=== PATIENT | female | born 1995 | race Caucasian/White ===

== ENCOUNTER → 2020-04-28 | Outpatient (REF) | payer OTHER | LOC: M SFHCLUC 15:34 | PROVIDERS: ATTEND Physician Assistant | DX: J02.9 Acute pharyngitis, unspecified (principal) ==

== ENCOUNTER 2021-02-10 15:12 | Outpatient (CLI) | payer OTHER ==
[~2021-02-10] VITALS: Ht 157.5 cm; Wt 65.0 kg
[2021-02-10 15:32] VITALS: BP 109/66
--- NOTE | 2021-02-10 17:05 | IPNPDOC ---
Obstetrical Progress Note Date of Service February 10, 2021 Subjective Ms. Gonzalez is a 25yo at 25+6 presenting with hematuria, she notably has a low lying placenta. She notes slight dysuria with her last void but otherwise has had no urinary symptoms. She denied fevers or chills. She denied abdominal or back pain. She denied n/v/d, cp, sob, curtis, visual changes, abd pain, vaginal bleeding, discharge, LOF, decreased FM, contractions. Objective Vital Signs Date Time Temp Pulse Resp B/P (MAP) Pulse Ox O2 Delivery O2 Flow Rate FiO2 02/10/21 15:32 98.8 104 109/66 (80) Assessment Heart Rate (FHR): 140 Variability: Moderate Accelerations: Positive Decelerations: None Heart Rate Tracing: Category I (AGA) Tocometer Contractions: No Sterile Vaginal Examination Dilation: None Postion/Presentation: Cephalic presentation Assessment and Plan Additional Comments Ms. Gonzalez is a 25yo at 25+6 presenting with hematuria, she notably has a low lying placenta and a history of kidney stones. She notes slight dysuria with her last void but otherwise has had no urinary symptoms. She denied fevers or chills. She denied abdominal or back pain. VS normal. NST appropriate for gestational age. No contractions. On exam she has slight right CVA tenderness and no abdominal tenderness. Bedside TVUS with placenta still near the cervix but no concerning color flow near the os. On speculum exam there was no vaginal bleeding (there were multiple cervical polyps that were easily friably but no bleeding on the exam prior to palpation of the polyps with a applicator). UA with +blood and no casts, SG low. UCx sent. At this time patient is not meeting criteria for pyelonephritis and a renal stone is possible but given no pain either small and non-obstructing or unlikely. At this time will start treatment for UTI. If symptoms persist or patient develops pain will perform renal US. - starting macrobid for UTI - strict return precautions for pain, vaginal bleeding, fever, PO intolerance, or other concerning symptoms - educated on routine OB return precautions - follow up in clinic this week to re-evaluate and adjust meds for UCx as indicated LUCIEN Fuentes DO February 10, 2021 17:05
[2021-02-10 17:33] LABS: APPEARANCE, URINE CLEAR (CLEAR); BACTERIA, URINE AUTO 1+ (NEGATIVE); BILIRUBIN, URINE AUTO NEGATIVE (NEGATIVE); BLOOD, URINE BLOOD 3+ (NEGATIVE); COLOR, URINE STRAW (YELLOW); GLUCOSE, URINE (UA) AUTO NEGATIVE (NEGATIVE); KETONE, URINE AUTO NEGATIVE (NEGATIVE); LEUKOCYTE ESTERASE, URINE AUTO NEGATIVE (NEGATIVE); NITRITE, URINE AUTO NEGATIVE (NEGATIVE); PROTEIN, URINE AUTO NEGATIVE (NEGATIVE); RBC, URINE AUTO 6 /HPF (0-3); SPECIFIC GRAVITY URINE AUTO 1.001 (1.002-1.035); SQUAMOUS EPITHELIAL CELL UR AU 0 /HPF (0-6); UROBILINOGEN, URINE AUTO 0.2 mg/dL (0.0-2.0); WBC, URINE AUTO 1 /HPF (0-3)
== END 2021-02-10 17:40 | disposition home or self-care (01) ==
LOC: M LDO 15:12
PROVIDERS: ATTEND Registered Nurse
DX: O23.43 Unspecified infection of urinary tract in pregnancy, third trimester (principal); Z3A.25 25 weeks gestation of pregnancy; O44.43 Low lying placenta NOS or without hemorrhage, third trimester; Z87.442 Personal history of urinary calculi
CPT/HCPCS: 81001; 87086; G0378; G0463

== ENCOUNTER 2021-05-19 00:21 | Outpatient (CLI) | payer OTHER ==
[~2021-05-19] VITALS: Ht 157.5 cm; Wt 70.2 kg
[2021-05-19 00:46] VITALS: BP 116/71
[2021-05-19 01:08] VITALS: BP 112/73
[2021-05-19 01:19] VITALS: BP 122/79
[2021-05-19] MEDS ORDERED: PREN29CH2 PO (01:55)
[2021-05-19] MEDS ORDERED: HOME MED LIST COMPLETE! XX SCH (01:55)
[2021-05-19 02:30] VITALS: BP 119/77
--- NOTE | 2021-05-19 06:55 | IPNPDOC ---
Obstetrical Progress Note Date of Service May 19, 2021 Objective Vital Signs Date Time Temp Pulse Resp B/P (MAP) Pulse Ox O2 Delivery O2 Flow Rate FiO2 05/19/21 02:30 98.2 86 16 119/77 (91) Assessment Variability: Moderate Accelerations: Positive Decelerations: None Heart Rate Tracing: Category I Tocometer Contractions: Yes Frequency: regular Sterile Vaginal Examination Dilation: 3 cm Effacement (%): 50% Station: -3 Cervical Consistency: Soft Cervical Position: Posterior Postion/Presentation: Cephalic presentation Assessment and Plan Status: Reassuring Additional Comments Ms. Gonzalez is a 25yo at 39+6 who presents for a labor check. She reports contractions x2 hours. She denied pressure. She denied VB, LOF, decreased FM. She otherwise denied a 12 point ROS. On exam she was 3/50/-3 and was unchanged on 2h repeat exam. TAUS was cephalic with MVP 4cm, +FM. CAT I NST reactive. Eminent active labor is unlikely at this time. Educated on routine OB return precautions. Otherwise to followup at next [facility]. LUCIEN RIVERA DO May 19, 2021 06:55
[2021-05-19] MEDS ORDERED: ACET325C5 PO (08:53)
== END 2021-05-19 03:26 | disposition home or self-care (01) ==
LOC: M LDO 00:21
PROVIDERS: ATTEND Obstetrics & Gynecology
DX: O47.1 False labor at or after 37 completed weeks of gestation (principal); Z3A.39 39 weeks gestation of pregnancy
CPT/HCPCS: 59025; 76815; G0378; G0463

== ENCOUNTER 2021-05-19 08:19 | Inpatient (IN) | payer OTHER ==
[2021-05-19] VITALS (43 sets, daily range): BP systolic 90–162; BP diastolic 54–100
[~2021-05-19] VITALS: Ht 157.5 cm; Wt 69.6 kg
[~2021-05-19 08:19] MED LIST: PREN29CH2 PO
[2021-05-19] MEDS ORDERED: LACTATED RINGER'S 1000 ML IV STA (08:47)
[2021-05-19] MEDS ORDERED: OXYTOCIN DRIP 30 UNITS in IV 1 EA IV PRN (08:50)
[2021-05-19] MEDS ORDERED: LIDOCAINE 1% MDV 20ML VIAL INFIL PRN (08:50)
[2021-05-19] MEDS ORDERED: CARBOPROST TROMETHAMINE 250 MCG/ML AMP IM PRN (08:50)
[2021-05-19] MEDS ORDERED: TRANEXAMIC ACID INJection 1,000 MG in NS 100 ML IV PRN (08:50)
[2021-05-19] MEDS ORDERED: METHYLERGONOVINE MALEATE 0.2 MG/ML VIAL (J2210) IM PRN ×2 (08:50→21:05)
[2021-05-19] MEDS ORDERED: ACET325C5 PO (08:53)
[2021-05-19] MEDS ORDERED: FAMOTIDINE INJ 20MG/2ML VIAL (S0028 PER 1) IVP STA (08:55)
[2021-05-19] MEDS ORDERED: ONDANSETRON 4MG/2ML VIAL IV STA (08:56)
[2021-05-19 09:52] LABS: HEMATOCRIT 37.2 % (36.0-47.0); MEAN CORPUSCULAR HEMOGLOBIN 33.2 pg (27.0-33.0); MEAN CORPUSCULAR HGB CONC 34.9 g/dl (32.0-36.5); MEAN CORPUSCULAR VOLUME 95.1 fl (80.0-96.0); PLATELET COUNT, AUTOMATED 191 10^3/uL (150-450); RED BLOOD COUNT 3.91 10^6/uL (4.00-5.40); WHITE BLOOD COUNT 12.8 10^3/uL (4.0-10.0)
--- NOTE | 2021-05-19 09:55 | HPEPDOC ---
Obstetrical History & Physical General Date of Admission May 19, 2021 at 08:48 History of Present Illness 25 yo at 40w6d with PERRI of MAY 20 presents to L&D with worsening contrac tions since 0500 this morning. She reports that she has had increase nausea/vomiting/heartburn since this morning. She reports that has had 2 episodes of vomiting this morning. She denies vaginal bleeding, leaking of fluid, and reports positive movement. Chief Complaint: Contractions, term Information Provided By: Patient Age: 25 : 1 Term: 0 Pre-term: 0 Abortions: 0 Livin Care Care: Good Care Dating Final EDC by: LMP, 1st trimester (US) Estimated Date of Confinement: May 20, 2021 EGA at Admission: 40.6 Antepartum Course Height (inches): 62 Pre- weight (lbs.): 147 Admission Weight (lbs.): 153 Change in Weight (lbs.): 6 Past Medical History Past Obstetrical History : Past Obstetrical History: [employer] History: No pertinent history Past Medical History Medical History Hx of migraines without aura, anxiety, depression, C3-C7 and L5-S1 bulging spinal discs, Hx of concussion, Hx of kidney stones Surgical History: [place] teeth Family History Significant Family History: Diabetes Social History Marital Status: Family situation: Spouse/partner home Psychosocial History: Anxiety, Depression * Smoker: non-smoker Alcohol: Denies Drugs: denies Abuse Violence Screening Have you been hit/kicked/slapp: No Have you been sexually assault: No Imunizations Tdap status: current Influenza Status: current Allergies Coded Allergies: No Known Allergies (Unverified , 05/19/21) Medications Scheduled No115/Iron/Folic Acid ( 19 Chewable Tablet) 1 Each Tab.chew, 1 TAB PO DAILY Miscellaneous Medications Acetaminophen (Tylenol) 325 Mg Capsule, 1,000 MG PO Physical Examination Physical Examination GENERAL: Alert and oriented times three. BREAST: . ABDOMEN: Gravid and non-tender to touch. FETUS: Is vertex (VTX) by sterile vaginal examination (SVE), fetus is vertex (VTX) by Ancelmo. HEART RATE: Regular rate and rhythm. LUNGS: Clear to auscultation (CTA). EXTREMITIES: No edema. No clonus. Deep tendon reflexes (DTRs) + 2. Laboratory Data 24H LABS Laboratory Tests 2 05/19/21 08:52: Serology Scanned Report Hepatitis B Testing Pertinent Laboratoy Data Blood Type: O+ RBC Antibody Screen: Negative HIV: Negative Hepatitis B: Negative Rapid Plasma Reagin: Nonreactive Rubella: Immune Varicella: Immune Chlamydia/Gonorrhea: Negative Group B Streptococcus: Negative Cystic Fibrosis: Negative Steroid Therapy Steroid Therapy: No Vaginal Examination Dilation: 6 cm Effacement: 80% Station: -2 Cervical Consistency: Soft Cervical Position: Anterior Presentation: Cephalic presentation Position: Vertex (occiput) Assessment Heart Rate (FHR): 135 Variability: Moderate Accelerations: Present Decelerations: None Tocometer Contractions: Yes Frequency: regular (every 6-7 minutes) Multi-drug resistant Organism: No history of MDRO Assessment/Plan Assessment IUP at 40w6d Active labor Anxiety Depression Plan Admit and orient. Pole Maker and consent. Diet: clear liquids. Group B Streptococcus (GBS) negative. Labs and intravenous (IV) per unit protocol. Counseled on Pitocin and induction of labor (IOL). Lactated Ringers (LR): Bolus 1000 mL, then at 125 mL/hr. Anticipate normal spontaneous delivery (). C-S as appropriate. Labor and Delivery Counseling Discussed risks of labor complications to include but not limited to shoulder dystocia, PPH, and indications for section. Risks of vaginal delivery include but are not limited to: Bleeding, infection, injury to the vagina, pelvic structures, injury to baby, damage to the uterus, reactions to anesthesia, uterine rupture, risk of hysterectomy for life threatening bleeding, or . Medications used to induce or augment labor may increase your risk for infection, uterine tachysystole, uterine rupture, heart rate abnormalities, need for emergency delivery or possible hysterectomy, and hemorrhage. Additional risks for use of forceps and vacuum include: increased risk of perineal and vaginal lacerations, risk of urinary or bowel incontinence, increased risk of injury to baby with bruising, scratches, hematomas on the head, or intracranial bleeding. All questions answered to the to patient and family members satisfaction. She verbalized understanding of all information and is without any further questions at this time. MICAELA HIGUERA CNM May 19, 2021 09:02
--- NOTE | 2021-05-19 13:52 | IPNPDOC ---
Obstetrical Progress Note Date of Service May 19, 2021 Subjective 25 yo at 39w6d with PERRI of MAY 20 admitted for labor. She is feeling comfortable with her epidural. She has supportive family at the bedside. Objective Vital Signs Date Time Temp Pulse Resp B/P (MAP) Pulse Ox O2 Delivery O2 Flow Rate FiO2 05/19/21 12:26 76 90/55 (67) 05/19/21 11:21 98.9 20 Assessment Heart Rate (FHR): 125 Variability: Moderate Accelerations: Positive Decelerations: None Tocometer Contractions: Yes (every 6-7 minutes) Sterile Vaginal Examination Dilation: 8 cm Effacement (%): 80% Station: -2 Cervical Consistency: Soft Cervical Position: Anterior Postion/Presentation: Cephalic presentation Assessment and Plan Age: 25 : 1 Term: 0 Pre-term: 0 Abortions: 0 Livin Weeks & Days 39w6d Status: Reassuring Group B Streptococcus: Negative Anticipate: Vaginal Delivery MICAELA HIGUERA CNM May 19, 2021 13:45
[2021-05-19] MEDS ORDERED: ONDANSETRON 4MG/2ML VIAL IV PRN ×2 (14:10→21:05)
[2021-05-19] MEDS ORDERED: EPIDURAL/PCA KEYS XX PRN (14:10)
[2021-05-19] MEDS ORDERED: ePHEDrine SULFATE 25 MG/5 ML(5MG/ML) SYRINGE IV PRN (14:10)
[2021-05-19] MEDS ORDERED: FENTANYL/ROPIVACAINE/NACL BAG 100 ML EPIDURAL SCH (14:10)
[2021-05-19] MEDS ORDERED: REFRIGERATOR IV KEYS XX PRN (14:10)
[2021-05-19] MEDS ORDERED: EPIDURAL COMMENT XX SCH (14:10)
[2021-05-19] MEDS ORDERED: LACTATED RINGER'S 1000 ML IV PRN (14:10)
[2021-05-19] MEDS ORDERED: NALOXONE INJ 0.4MG/1ML VIAL (J2310 PER 1MG) IV PRN (14:10)
[2021-05-19] MEDS ORDERED: diphenhydrAMINE 50MG/ML VIAL (J1200) IV PRN (14:10)
[2021-05-19] MEDS ORDERED: OXYTOCIN DRIP 30 UNITS in IV 1 EA IV SCH ×2 (15:00→21:05)
[2021-05-19] MEDS ORDERED: diphenhydrAMINE 50MG/ML VIAL (J1200) IV STA (15:18)
--- NOTE | 2021-05-19 15:30 | IPNPDOC ---
Obstetrical Progress Note Date of Service May 19, 2021 Subjective 25 yo at 39w6d with PERRI of MAY 20 admitted for labor. She is feeling well and is comfortable with her epidural. She reports that since having her epidural placed, she has had itching across her chest. Objective Vital Signs Date Time Temp Pulse Resp B/P (MAP) Pulse Ox O2 Delivery O2 Flow Rate FiO2 05/19/21 14:06 98.6 88 16 127/76 (93) Room Air Mild redness noted across the chest. No notable rash. Assessment Heart Rate (FHR): 125 Variability: Moderate Accelerations: Present Decelerations: None Tocometer Contractions: Yes Frequency: regular (every 6-8 minutes) Sterile Vaginal Examination Dilation: 8 cm Effacement (%): 80% Station: -2 Cervical Consistency: Soft Cervical Position: Anterior Postion/Presentation: Cephalic presentation Assessment and Plan Age: 25 : 1 Term: 0 Pre-term: 0 Abortions: 0 Livin Weeks & Days 39w6d Status: Reassuring Group B Streptococcus: Negative Anticipate: Vaginal Delivery Additional Comments Discussed recommendations to start pitocin. Recommended for IV benadryl for itching. MICAELA HIGUERA CNM May 19, 2021 15:14
[2021-05-19] MEDS: LR 1,000 ML IV SCH ×2 (16:50→18:02)
--- NOTE | 2021-05-19 18:35 | IPNPDOC ---
Obstetrical Progress Note Date of Service May 19, 2021 Subjective 25 yo at 39w6d with PERRI of MAY 20 admitted for labor. She is feeling well and is comfortable with her epidural. Objective Vital Signs Date Time Temp Pulse Resp B/P (MAP) Pulse Ox O2 Delivery O2 Flow Rate FiO2 05/19/21 18:04 83 121/72 (88) 05/19/21 15:56 99.3 16 Room Air Assessment Heart Rate (FHR): 135 Variability: Moderate Accelerations: Present Heart Rate Tracing: Category I Tocometer Contractions: Yes Frequency: regular Sterile Vaginal Examination Dilation: 9 cm Effacement (%): 100% Station: +1, +2 Assessment and Plan Anticipate: Vaginal Delivery Additional Comments Small anterior lip on R side, not reducible. Pt comfortable with epidural and faisal regular. Will position patient on R side and reassess in 1hr. DAPHNE WALTER M.D. May 19, 2021 18:35
[2021-05-19] MEDS ORDERED: ACETAMINOPHEN TAB 650MG DOSE (2X325MG) PO PRN (21:05)
[2021-05-19] MEDS ORDERED: MEASLES,MUMPS,RUBELLA VACCINE INJ (MMR-II) (90707) SC SCH (21:05)
[2021-05-19] MEDS ORDERED: RHOGAM 300 MCG (1500 IU) INJ (J2790) IM SCH (21:05)
[2021-05-19] MEDS ORDERED: IBUPROFEN 600MG TAB PO PRN (21:05)
[2021-05-19] MEDS ORDERED: IBUPROFEN 800 MG TAB PO PRN (21:05)
[2021-05-19] MEDS ORDERED: DIBUCAINE 1% OINTMENT 30GM TOP PRN (21:05)
[2021-05-19] MEDS ORDERED: DOCUSATE SODIUM 100MG CAPSULE PO PRN (21:05)
[2021-05-19 21:10] LABS: HEMATOCRIT 30.5 % (36.0-47.0); MEAN CORPUSCULAR HEMOGLOBIN 32.6 pg (27.0-33.0); MEAN CORPUSCULAR HGB CONC 33.8 g/dl (32.0-36.5); MEAN CORPUSCULAR VOLUME 96.5 fl (80.0-96.0); PLATELET COUNT, AUTOMATED 170 10^3/uL (150-450); RED BLOOD COUNT 3.16 10^6/uL (4.00-5.40)
[2021-05-19 21:12] LABS: HEMOGLOBIN 10.3 g/dl (12.0-15.5)
--- NOTE | 2021-05-19 21:25 | DNPDOC ---
[facility] Delivery Note Delivery Note DATE OF DELIVERY: 05/19/2020 PREDELIVERY DIAGNOSIS: 40 6/7 weeks' gestation and labor. anxiety/depression POST DELIVERY DIAGNOSIS: Delivered. 2nd degree perineal laceration hemorrhage PROCEDURE: Spontaneous vaginal delivery. Repair of second degree laceration COMPOSITION WEATHERBOARD APPLIER: Dr. Walter ANESTHESIA: epidural and 1% lidocaine for perineal repair. ESTIMATED BLOOD LOSS: 1500 mL. FINDINGS: 7 pound 11 ounce (3480g) male , Score 8/9. PPH with EBL of approximately 1500cc immediately following delivery. REMARKS: PPH meds administered included additional 30mU bag of pitocin, 1g tranexamic acid, 0.2mg IM methergine, 250mcg IM hemabate, 1000mcg of [place] cytotec. DELIVERY SUMMARY: 25 yo admitted at 40w6d in active labor. Labor was augmented with AROM and pitocin titrated to 6mU during intrapartum course. She progressed ant lip/C/+2 and felt the urge to push. Cervix was easily reducible with contraction, and with good maternal pushing efforts, pt delivered head over perineum. Head restituted to LOT, and anterior shoulder then delivered without difficulty with gentle downward traction. Infant was placed on mothers abdomen and noted to be crying and moving all extremities. Cord was doubly clamped and cut by father of baby. Placenta then delivered intact without difficulty. Significant amount of bleeding noted at this time. Fundal massage performed with good uterine tone noted, however patient with continued bleeding. uterotonic agents administered as listed above and labs obtained. Pt's vitals assessed, BP normotensive and pt mildly tachycardic. Bleeding diminished, however intermittently recurred due to atony of lower uterine segment. Cervix inspected with no lacerations noted. Freitas catheter inserted for continuous drainage of bladder. Bedside US performed with thin endometrial stripe noted, low concern for retained placental tissue. Bleeding gradually subsided and repair of second degree perineal laceration performed in usual fashion. Good hemostasis noted at this time. Will continue to monitor closely. Pt counseled on blood transfusion pending results or if bleeding recurs. Bakri balloon at bedside if needed. DAPHNE WALTER M.D. May 19, 2021 21:24
[2021-05-20 00:15] VITALS: BP 111/59
[2021-05-20] MEDS: ACETAMINOPHEN 500 MG TAB PO PRN ×2 (00:50→23:35)
[2021-05-20] MEDS: LR 1,000 ML IV SCH ×2 (01:00→09:20)
[2021-05-20 02:30] VITALS: BP 105/57
[2021-05-20 06:30] VITALS: BP 99/57
[2021-05-20 07:36] LABS: MEAN CORPUSCULAR HEMOGLOBIN 33.2 pg (27.0-33.0); MEAN CORPUSCULAR HGB CONC 34.6 g/dl (32.0-36.5); MEAN CORPUSCULAR VOLUME 95.9 fl (80.0-96.0); PLATELET COUNT, AUTOMATED 151 10^3/uL (150-450); RED BLOOD COUNT 2.71 10^6/uL (4.00-5.40); WHITE BLOOD COUNT 19.7 10^3/uL (4.0-10.0)
--- NOTE | 2021-05-20 08:04 | IPNPDOC ---
Progress Note Date of Service: May 20, 2021 Day#: 1 Progress Note SUBJECT: Esther is a 25-year-old 1 now Para 1001 status post spontaneous vaginal delivery at 40-6/7 weeks' at approximately 2000 hours on 05/19/21 of a 7 pound 11 ounce (3480g) male infant, Score 8/9. Delivery was complicated by a PPH with QBL of 2100g. PPH meds administered included additional 30mU bag of pitocin, 1g tranexamic acid, 0.2mg IM methergine, 250mcg IM hemabate, 1000mcg of [place] cytotec. Freitas catheter inserted and left in place overnight for decompression of bladder. No further bleeding episodes and patient overall doing well day # 1. She has been ambulating around room and tolerating regular diet. Attempting to breast feed. Reports that lochia is about like a normal period at this time. Denies any lightheadedness or dizziness OBJECTIVE: VITAL SIGNS: Within normal limits, afebrile. Alert and oriented times three. normal work of breathing Heart rate: Episodes of mild tachycardia overnight. Pt asymptomatic Abdomen: Fundus firm at U-2. Soft, NTTP. ASSESSMENT: Esther is a 25-year-old 1 now Para 1001 status post spontaneous vaginal delivery at 40-6/7 weeks' at approximately 2000 hours on 05/19/21 of a 7 pound 11 ounce (3480g) male , Score 8/9. Delivery was complicated by a PPH with QBL of 2100g. PPH meds administered included additional 30mU bag of pitocin, 1g tranexamic acid, 0.2mg IM methergine, 250mcg IM hemabate, 1000mcg of [place] cytotec. Freitas catheter inserted and left in place overnight for decompression of bladder. No further bleeding episodes and patient overall doing well day # 1. PLAN: 1. Discharge to home tomorrow 2. Tylenol and Motrin for pain. 3. Encourage breast feeding and ambulation. Desires circumcision for baby '[place]' 4. Desires IUD at visit for contraception 5. Routine PP visit in 6 weeks in clinic. 6. Discussed return precautions at length. VS, I&O, 24H, Fishbone Vital Signs/I&O Vital Signs Date Time Temp Pulse Resp B/P (MAP) Pulse Ox O2 Delivery O2 Flow Rate FiO2 05/20/21 06:30 97.3 101 16 99/57 (71) 98 Room Air I&O- Last 24 Hours up to 6 AM 05/20/21 06:00 Intake Total 450 ml Output Total 5450 ml Balance -5000 ml Laboratory Data 24H LABS Laboratory Tests 2 05/19/21 08:52: Serology Scanned Report Hepatitis B Testing 05/19/21 09:23: Nucleated Red Blood Cells % (auto) 0.0, Syphilis Serology NONREACTIVE 05/19/21 20:51: Nucleated Red Blood Cells % (auto) 0.0 05/20/21 06:51: Nucleated Red Blood Cells % (auto) 0.0 CBC/BMP Laboratory Tests 05/19/21 09:23 05/19/21 20:51 05/20/21 06:51 DAPHNE WALTER M.D. May 20, 2021 08:04
[2021-05-20] MEDS: PRENATAL VITAMINS CHEWABLE TABLET PO SCH (08:16)
[2021-05-20 18:00] VITALS: BP 90/53
[2021-05-21 06:00] VITALS: BP 105/61
[2021-05-21] MEDS: LR 1,000 ML IV SCH (07:05)
[2021-05-21] MEDS: PRENATAL VITAMINS CHEWABLE TABLET PO SCH (08:11)
[2021-05-21] MEDS ORDERED: DIBU28OI2 TOP (09:02)
[2021-05-21] MEDS ORDERED: IBUP80TA PO (09:02)
--- NOTE | 2021-05-21 09:47 | DS.PDOC ---
Discharge Summary General Date of Admission May 19, 2021 at 08:48 Date of Discharge May 21, 2021 Discharge Summary HOSPITAL COURSE: Ms. Gonzalez is a 25 yo G1 now P1 who underwent an complicated by hemorrhage on 19May2021. She required multiple uterotonics after delivery and total EBL was ~2000ml. Ultimately her bleeding was controlled and her blood counts remained stable. She had no symptoms of anemia and no further heavy bleeding. Her course was otherwise unremarkable. On her day of discharge she met all appropriate discharge criteria. She was ambulating, voiding, tolerating a regular diet, and had minimal lochia. DISCHARGE MEDICATIONS: Please see below. ALLERGIES: Please see below. PHYSICAL EXAMINATION ON DISCHARGE: VITAL SIGNS: Please see below. GENERAL: AAOX3, NAD ABDOMINAL EXAMINATION: Fundus firm at U-2. No fundal tenderness EXTREMITIES: No edema PSYCHIATRIC EXAMINATION: Affect appropriate LABORATORY DATA: Please see below. ACTIVITY: Pelvic rest for 6 weeks DIET: Regular DISCHARGE PLAN: Discharge home DISPOSITION: Discharge home on 21May2021 DISCHARGE INSTRUCTIONS: 1. Nothing in the vagina for 6 weeks ITEMS TO FOLLOWUP ON ON OUTPATIENT: 1. Call to schedule a visit for 6 weeks post delivery DISCHARGE CONDITION: Stable. TIME SPENT ON DISCHARGE: Greater than 20 minutes. Catalina Carranza DO Vital Signs/I&Os Vital Signs Date Time Temp Pulse Resp B/P (MAP) Pulse Ox O2 Delivery O2 Flow Rate FiO2 05/21/21 06:00 98.0 93 18 105/61 (76) 98 Room Air I&O- Last 24 Hours up to 6 AM 05/21/21 06:00 Output Total 550 ml Balance -550 ml Discharge Medications Scheduled No115/Iron/Folic Acid ( 19 Chewable Tablet) 1 Each Tab.chew, 1 TAB PO DAILY, (Reported) Scheduled PRN Dibucaine (Dibucaine) 28 Gm Oint...g., 0 DOSE TOP Q4H PRN for PERINEUM PAIN Ibuprofen (Ibuprofen) 800 Mg Tablet, 800 MG PO Q8HP PRN for PAIN LEVEL 6-10 Miscellaneous Medications Acetaminophen (Tylenol) 325 Mg Capsule, 1,000 MG PO, (Reported) Allergies Coded Allergies: No Known Allergies (Unverified , 05/19/21) CATALINA CARRANZA DO May 21, 2021 09:47
[2021-05-21] MEDS: ACETAMINOPHEN 500 MG TAB PO PRN (13:28)
== END 2021-05-21 18:43 | disposition home or self-care (01) | DRG 806 ==
LOC: M LDO 08:19 → M LDI 08:48 → M PED 05-20 00:30
PROVIDERS: ADMIT Registered Nurse Maternal Newborn; ATTEND Obstetrics & Gynecology
PROC: 10E0XZZ Delivery of Products of Conception, External Approach (ICD-10-PCS; principal; 2021-05-20)
PROC: 0HQ9XZZ Repair Perineum Skin, External Approach (ICD-10-PCS; 2021-05-20)
PROC: 10907ZC Drainage of Amniotic Fluid, Therapeutic from Products of Conception, Via Natural or Artificial Opening (ICD-10-PCS; 2021-05-20)
DX: O99.344 Other mental disorders complicating childbirth (principal); Z37.0 Single live birth; O72.1 Other immediate postpartum hemorrhage; F32.9 Major depressive disorder, single episode, unspecified; F41.9 Anxiety disorder, unspecified; Z3A.39 39 weeks gestation of pregnancy; O70.1 Second degree perineal laceration during delivery

== ENCOUNTER → 2025-08-03 | Outpatient (RCR) ==
[~2025-08-03] MED LIST changes: +ACET325C5 PO; +DIBU28OI2 TOP; +IBUP80TA PO
== END ==
LOC: M EMPSKH 07-25 13:45
PROVIDERS: ATTEND Family Medicine
DX: Z20.828 Contact with and (suspected) exposure to other viral communicable diseases (principal)